=== PATIENT | female | born 1955 | race Caucasian/White ===

== ENCOUNTER → 2024-04-18 10:16 | Outpatient (REF) | payer OTHER, SELFPAY ==
[2024-04-18 12:38] LABS: Blood Urea Nitrogen 16 mg/dl (7-17); Calcium 9.9 mg/dl (8.4-10.2); Carbon Dioxide 28 mmol/L (22-30); Chloride 102 mmol/L (98-107); Glucose 89 mg/dl (70-99); Potassium 4.4 mmol/L (3.5-5.1); Sodium 139 mmol/L (135-145); eGFR > 60.00
== END ==
LOC: REG 10:16
PROVIDERS: ATTENDING PHYSICIAN Surgery Vascular Surgery; FAMILY PHYSICIAN Family Medicine
DX: I65.21 Occlusion and stenosis of right carotid artery (principal)
CPT/HCPCS: 36415; 80048

== ENCOUNTER → 2024-04-25 11:42 | Outpatient (REF) | payer OTHER, SELFPAY | LOC: RAD 11:42 | PROVIDERS: ATTENDING PHYSICIAN Surgery Vascular Surgery; FAMILY PHYSICIAN Family Medicine | DX: I65.21 Occlusion and stenosis of right carotid artery (principal) | CPT/HCPCS: 70496; 70498; Q9967 ==

== ENCOUNTER → 2024-06-08 13:50 | Outpatient (REF) | payer OTHER, SELFPAY | LOC: WDC 13:50 | PROVIDERS: ATTENDING PHYSICIAN Family Medicine | DX: Z12.31 Encounter for screening mammogram for malignant neoplasm of breast (principal) | CPT/HCPCS: 77063; 77067 ==

== ENCOUNTER → 2024-06-30 11:01 | Outpatient (REF) | payer MEDICARE, OTHER, SELFPAY | LOC: DHCBC/DCA 11:01 | PROVIDERS: ATTENDING PHYSICIAN Internal Medicine Cardiovascular Disease; FAMILY PHYSICIAN Family Medicine | DX: I65.23 Occlusion and stenosis of bilateral carotid arteries (principal); I10 Essential (primary) hypertension; E78.00 Pure hypercholesterolemia, unspecified | CPT/HCPCS: 78452; 93017; A9500; J2785 ==

== ENCOUNTER 2024-07-08 06:17 | Inpatient (IN) | payer MEDICARE, OTHER, SELFPAY ==
[2024-06-29 09:33] VITALS: BMI 27.0
[2024-06-29 10:04] LABS: % Basophils 0.8 % (0-2); % Eosinophils 1.5 % (0-6); % Immature Granulocytes 0.3 % (0-0.5); % Lymphocytes 24.9 % (20.5-51.1); % Monocytes 8.3 % (1.7-9.3); % Neutrophils 64.2 % (42.2-75.2); Absolute Basophils 0.1 10^3/uL (0-0.2); Absolute Eosinophils 0.1 10^3/uL (0-0.7); Absolute Lymphocytes 2.3 10^3/uL (1.2-3.4); Absolute Monocytes 0.8 10^3/uL (0.1-0.6); Absolute Neutrophils 5.8 10^3/uL (1.4-6.5); Hematocrit 42.8 % (37.0-47.0); Hemoglobin 14.7 g/dL (12.0-16.0); Mean Corp Hgb Conc. 34.3 g/dL (33.0-37.0); Mean Corpuscular Hgb 32.2 pg (27.0-31.0); Mean Corpuscular Volume 93.9 fL (81.0-99.0); Mean Platelet Volume 11.4 fL (7.4-10.4); Nucleated Red Blood Cells % 0 %; Platelet Count 238 10^3/uL (130-400); Red Blood Cell Count 4.56 10^6/uL (4.20-5.40); Red Cell Dist. Width 13.5 % (11.5-14.5)
[2024-06-29 10:13] LABS: INR 0.98
[2024-06-29 10:14] LABS: APTT 33.7 Sec (23.4-35.0)
[2024-06-29 11:54] LABS: Blood Urea Nitrogen 14 mg/dl (7-17); Calcium 9.8 mg/dl (8.4-10.2); Carbon Dioxide 31 mmol/L (22-30); Chloride 103 mmol/L (98-107); Estimated Creatinine Clearance 72 ml/min; Glucose 88 mg/dl (70-99); Potassium 4.1 mmol/L (3.5-5.1); Sodium 136 mmol/L (135-145); eGFR > 60.00
[2024-07-08] VITALS (15 sets, daily range): BP systolic 95–155; BP diastolic 37–70; BMI 26.8
[2024-07-08] MEDS: NSS 500 IV (07:05)
[2024-07-08] MEDS: PERIDEX 0.12% ORAL RINSE 15 ML PO (07:09)
[2024-07-08] MEDS: BACTROBAN NASAL 1 GRAM NASAL (07:09)
--- NOTE | 2024-07-08 07:27 | W.SUR.PREOP ---
Pre-Operative Surgical Note
-
I have examined this patient prior to the performance of the scheduled procedure.
The patient's condition is unchanged from the time of the current History and
Physical and the patient is able to undergo the scheduled procedure.
[2024-07-08 08:48] LABS: ACT-LR - POC 340 Seconds (116-155)
[2024-07-08 09:21] LABS: ACT-LR - POC 287 Seconds (116-155)
--- NOTE | 2024-07-08 10:13 | W.SUR.POST ---
Surgical Immediate Post Op
Note
Pre Op Diagnosis: RIGHT carotid stenosis
Post Op Diagnosis: RIGHT carotid stenosis
Procedure Performed: RIGHT caortid endarterectomy
Primary Surgeon: Miguelito Panchal MD
Secondary Surgeons: Johan Bocanegra MD, PhD
Anesthesia: Per Anesthesia
Estimated Blood Loss: 20 cc
Fluids: Per Anesthesia
Drains/Shunts: None
Specimens/Cultures: None
Doppler/Duplex/Angio (Y/N): None
Complications: None
Operative Findings: Uncomplicated RIGHT caortid endarterectomy, neuro intact post-op.
[2024-07-08] MEDS: ZOFRAN 4 MG IV (10:24)
[2024-07-08] MEDS: DILAUDID 0.25 MG IV ×2 (10:25→10:40)
[2024-07-08 10:30] LABS: Hematocrit 34.7 % (37.0-47.0); Hemoglobin 12.1 g/dL (12.0-16.0); Mean Corp Hgb Conc. 34.9 g/dL (33.0-37.0); Mean Corpuscular Hgb 31.8 pg (27.0-31.0); Mean Corpuscular Volume 91.3 fL (81.0-99.0); Mean Platelet Volume 10.6 fL (7.4-10.4); Platelet Count 203 10^3/uL (130-400); Red Cell Dist. Width 13.6 % (11.5-14.5); White Blood Cell Count 11.8 10^3/uL (4.8-10.8)
[2024-07-08] MEDS: COMPAZINE 5 MG IV (10:39)
--- NOTE | 2024-07-08 10:39 | OR.RPT ---
Operative Report
Operative Report
Date of Operation: 07/08/2024
Pre Op Diagnosis: High-grade calcified stenosis of the right internal carotid artery, asymptomatic
Post Op Diagnosis: High-grade calcified stenosis of the right internal carotid artery, asymptomatic
Procedure: RIGHT carotid endarterectomy with patch angioplasty using bovine pericardium
Surgeon: Miguelito Panchal III, MD
[place] Shearer: Johan Bocanegra MD PhD PGY-6
Anesthesia: General
Complications: None
History and Indications for Procedure: 69-year-old female with asymptomatic high-grade stenosis involving the right internal carotid artery
Procedure in Detail: Morena Murillo was correctly identified and placed supine on the operating table. After adequate induction of anesthesia the right neck was positioned, prepped and draped in the usual sterile fashion. Preoperative antibiotics were
administered. A timeout procedure was performed with the nursing and anesthesia staff confirming the patients identity as well as the nature and laterality of the procedure.
The carotid bifurcation was marked with ultrasound at the beginning of the case. The incision was planned accordingly. An incision was made along the anterior border of the right sternocleidomastoid muscle. Electrocautery was used to divide the
subcutaneous tissue and platysma. The carotid sheath was entered with sharp dissection. The internal jugular vein was retracted laterally. The vagus nerve was identified and protected throughout the case. The common carotid artery was identified at
the base of this incision and carefully encircled with a vessel loop. The patient was systemically heparinized. The dissection was continued distally towards the carotid bifurcation. The facial vein was skeletonized, ligated and divided between ties
and clips. The proximal external carotid artery was encircled with a vessel loop. The distal internal carotid artery was encircled with a vessel loop at a soft spot on the artery beyond the plaque. The hypoglossal nerve was identified and protected.
The internal vessel loop was secured followed by the common and external. An arteriotomy was made on the distal common carotid artery with an 11-blade. This was extended proximally and distally with Delacruz scissors. The arteriotomy was extended
distally through the plaque to an area of normal appearing internal carotid artery. The distal vessel loop was replaced with a short tip hockey-stick type vascular clamp. An endarterectomy was performed with a Holmes elevator in the standard
fashion. The proximal extent of the plaque was transected with scissors. The distal end of the plaque in the internal carotid artery feathered very nicely with no distal intimal flap identified. The plaque extending into the external carotid artery
was everted. Once the plaque was fully removed the endarterectomy plane was irrigated with heparinized saline and any loose fronds of tissue were removed. A pre-cut piece of bovine pericardium was sewn in place using a running 6-0 Prolene suture.
Prior to the completion of the patch the common carotid was allowed to forward bleed and the external was allowed to back bleed. The area under the patch was irrigated with heparinized saline to remove any potential thrombus or debris. The
anastomosis was completed.
The external vessel loop was released first, followed by the common and then the internal. There was an excellent pulse in the distal internal carotid artery. An excellent quality Doppler signal in the distal internal carotid artery was also
confirmed. The patch suture line was closely inspected for hemostasis and was achieved. Protamine was administered. Hemostasis was achieved in the wound bed. The wound was irrigated with saline solution.
The wound was then closed in layers. Sterile dressings were applied. The patient awoke from anesthesia with no immediate neuro deficits and was taken to the PACU in stable condition.
Attestation: I was present and responsible for the entire procedure
Signed:
Miguelito Panchal III, MD
[facility] V[facility] Surgery
[phone] (cell)
[2024-07-08 10:42] LABS: INR 1.09; PT 13.9 Sec (11.4-14.6)
[2024-07-08 10:43] LABS: APTT 34.8 Sec (23.4-35.0)
[2024-07-08] MEDS: NEO-SYNEPHRINE 250 IV (11:00)
[2024-07-08 11:08] LABS: Blood Urea Nitrogen 13 mg/dl (7-17); Calcium 8.7 mg/dl (8.4-10.2); Carbon Dioxide 25 mmol/L (22-30); Chloride 107 mmol/L (98-107); Estimated Creatinine Clearance 84 ml/min; Glucose 124 mg/dl (70-99); Potassium 4.2 mmol/L (3.5-5.1); Sodium 140 mmol/L (135-145); eGFR > 60.00
[2024-07-08] MEDS: NSS 1000 IV ×2 (11:47→21:55)
--- NOTE | 2024-07-08 12:47 | CON.INTV ---
Consultation
Consultation Request
Date/Time Consultation Requested: 07/08/2024
Date/Time Consultation Performed: 07/08/2024
Requesting Provider: Dr. Panchal
Performing Provider: Dr. Brandon Shukla
Reason for Consultation: Postoperative ICU care status post carotid endarterectomy
Medical History
-
History of Present Illness:
69-year-old woman with past medical history significant for hypertension, arthritis and history of bilateral carotid endarterectomy. 90% on the right and less than 50% on the left. History of tobacco abuse. Electively admitted for
revascularization.
She underwent right carotic endarterectomy on 07/08/[address] Panchal without complications.
Currently in the critical care unit. She is stable.
Neurologically has no complaints per
Pain is controlled.
Denies shortness of breath
Past Medical History
Past Medical History: Other (As in HPI)
Social History
Tobacco: Smoker (Half a pack per day)
Alcohol: None
Drug: None
Family History
Family History: Reviewed & Not Pertinent
Allergies / Home Medications
Allergies
Allergy/AdvReac Type Severity Reaction Status Date / Time
No Known Allergies Allergy Verified 07/08/24 06:39
Home Medications
�Medication �Instructions �Recorded �Confirmed �Last Taken �Type
amlodipine 2.5 mg tablet 2.5 mg PO DAILY 06/24/24 07/08/24 07/08/24 04:30 History
amlodipine 5 mg tablet 5 mg PO HS 06/24/24 07/08/24 07/07/24 20:30 History
aspirin 81 mg tablet,delayed 81 mg PO 06/24/24 07/08/24 07/07/24 20:30 History
release
carbidopa ER 25 mg-levodopa 100 mg 1 tab PO HS 06/24/24 07/08/24 07/07/24 20:30 History
tablet,extended release
ibuprofen 200 mg tablet 400 mg PO DAILY 06/24/24 07/08/2424 04:30 History
metoprolol succinate 25 mg 25 mg PO HS 06/24/24 07/08/24 07/07/24 20:30 History
tablet,extended release 24 hr
metoprolol succinate 25 mg 37.5 mg PO DAILY 06/24/24 07/08/24 07/08/24 04:30 History
tablet,extended release 24 hr
atorvastatin 40 mg tablet 40 mg PO HS 07/08/24 07/08/24 07/07/24 20:30 History
Review of Systems
-
History Source: Patient
All other systems: Negative unless noted
Vitals / Labs / Diagnostic Testing
Vital Signs
Temp Pulse Resp BP Pulse Ox
97.9 F 57 12 105/37 96
07/08/24 11:54 07/08/24 11:45 07/08/24 11:45 07/08/24 11:45 07/08/24 11:45
Lab Data
07/08/24 10:21
07/08/24 10:21
Laboratory Results
07/08/24
10:21
PT 13.9
INR 1.09
APTT 34.8
Diagnostic Testing:
Physical Exam
-
HEENT: Normocephalic and Other (Incision is intact. No hematoma. No stridor on exam.)
Cardiovascular: S1/S2
Respiratory: Clear and Non-Labored Respirations
GI: Soft and Non Distended
Neurology: Awake
Skin: Warm
General: Comfortable
Assessment
-
Status post right carotid endarterectomy 07/08/[address] Panchal
Conditions present prior admission:
Hypertension
Hyperlipidemia
Tobacco abuse half a pack per day
Prior hysterectomy
Prior microdiscectomy
-
Assessment and plan:
Postoperative surgical intensive care unit monitoring
Supplemental oxygen as needed
Incentive spirometry
Aspiration precautions
Nebulizers if needed-currently not bronchospastic
Chest x-ray 06/29/2024 reviewed-no acute abnormalities.
Analgesia with oral narcotics. Monitor respiratory status closely
Neuro and vascular checks per protocol
Vascular surgery following-correspondence and operative notes reviewed
Monitor blood pressure
Restart outpatient medication
Allow for mild permissive hypertension
Cardene drip if needed
Follow hemoglobin
Follow blood sugars
Insulin supplementation as needed
Gentle IV fluids
Advance diet as able
DVT prophylaxis
Early nutrition
Early mobilization
--- NOTE | 2024-07-08 15:50 | PTCARENOTE ---
Pt has been drowsy since arriving to unit from PACU, but is easily arousable. Pt is oriented/pleasant/conversive. Neuro intact. Poor appetite but tolerating oral fluids well. Reginaldo-synephrine infusion off. Pt is Sinus Tez w/ rate of 57.
[2024-07-08] MEDS: HEPARIN 5000 UNITS SC (17:23)
[2024-07-08] MEDS: TYLENOL 650 MG PO (18:22)
--- NOTE | 2024-07-08 20:15 | PTCARENOTE ---
Pt Aox3, VSS, NSR on monitor, denies any overt pain, right neck is tender but refusing any medication at this time. neuro intact. Q1 nuero checks. Incision CDI, Approximated with surgical glue closure. [place] right radial. NS @80ml/hr. 2L o2 for sat
>[address], patient able to shift self in bed.
[2024-07-08] MEDS: NORVASC 5 MG PO (21:53)
[2024-07-08] MEDS: LIPITOR 40 MG PO (21:54)
[2024-07-08] MEDS: SINEMET CR 25-100 (EXTENDED RELEASE) 1 TABLET PO (21:54)
[2024-07-08] MEDS: ASPIR LOW (ENTERIC COATED) 81 MG PO (21:54)
[2024-07-08] MEDS: TOPROL XL 25 MG PO (21:54)
[2024-07-09] VITALS: BP 135/52
[2024-07-09] MEDS: HEPARIN 5000 UNITS SC ×2 (00:06→08:56)
[2024-07-09] MEDS: TYLENOL 650 MG PO (03:01)
[2024-07-09 04:00] VITALS: BP 145/63
[2024-07-09 04:30] LABS: Hematocrit 34.5 % (37.0-47.0); Mean Corp Hgb Conc. 34.8 g/dL (33.0-37.0); Mean Corpuscular Hgb 32.8 pg (27.0-31.0); Mean Corpuscular Volume 94.3 fL (81.0-99.0); Mean Platelet Volume 11.6 fL (7.4-10.4); Platelet Count 196 10^3/uL (130-400); Red Blood Cell Count 3.66 10^6/uL (4.20-5.40); Red Cell Dist. Width 13.5 % (11.5-14.5); White Blood Cell Count 19.6 10^3/uL (4.8-10.8)
[2024-07-09 04:39] LABS: INR 1.08; PT 13.8 Sec (11.4-14.6)
[2024-07-09 04:40] LABS: APTT 31.9 Sec (23.4-35.0)
[2024-07-09 04:52] LABS: Blood Urea Nitrogen 7 mg/dl (7-17); Carbon Dioxide 24 mmol/L (22-30); Chloride 107 mmol/L (98-107); Estimated Creatinine Clearance 84 ml/min; Glucose 111 mg/dl (70-99); Potassium 4.1 mmol/L (3.5-5.1); Sodium 138 mmol/L (135-145); eGFR > 60.00
[2024-07-09 06:00] VITALS: BMI 27.0
[2024-07-09 08:00] VITALS: BP 170/104
[2024-07-09] MEDS: TOPROL XL 37.5 MG PO (08:55)
[2024-07-09] MEDS: NORVASC 2.5 MG PO (08:56)
--- NOTE | 2024-07-09 08:57 | W.PN.VS ---
Today's Communication / Plan
-
Pathway
Assessment/Plan
-
POD1 R CEA
DC evelia
OOB
Diet
Possible home today
Subjective Data
-
Date of Service: July 09, 2024
Looks great
NO complaints
Objective Data
-
Vital Signs
Temp Pulse Resp BP Pulse Ox
98.7 F 64 13 145/63 92
07/09/24 07:42 07/09/24 07:00 07/09/24 07:00 07/09/24 04:00 07/09/24 07:00
Intake and Output
07/08/24 07/09/24 07/10/24
06:59 06:59 06:59
Intake Total 960 / 960
Output Total 1000 / 1000
Balance 960 / 960 -1000 / -1000
Intake:
Oral fluids 960 / 960
Output:
Urine, Voided 1000 / 1000
Other:
Number of approximated MODERATE 1
amounts of urine
Lab Results
07/09/24 04:03
07/09/24 04:03
Calcium 9.0 mg/dl (8.4-10.2) 07/09/24 04:03
Physical Exam
-
NAD
Alert/oriented
Grossly non focal neuro
Neck incision clean/dry
--- NOTE | 2024-07-09 09:49 | W.PN.INTV ---
Today's Communication / Plan
Recommendations
Continue postoperative care
Discontinue IV fluids
Continue outpatient medication
Antiplatelet
Increase activity as able
Advance diet
Discharge planning
Sign off
Assessment
-
Status post right carotid endarterectomy 07/08/[address] Panchal
Conditions present prior admission:
Hypertension
Hyperlipidemia
Tobacco abuse half a pack per day
Prior hysterectomy
Prior microdiscectomy
-
Assessment and plan:
Postoperative day 1
Neurologically intact
Hemodynamically stable
Pain is controlled
Analgesia with oral narcotics. Monitor respiratory status closely
Neuro and vascular checks per protocol
Vascular surgery following-correspondence and operative notes reviewed
Possible discharge later today
Blood pressure is controlled.
Continue outpatient medication
Arterial line discontinued
IV fluids discontinued
Follow blood sugars
Insulin supplementation as needed
Leukocytosis reactive. Afebrile.
DVT prophylaxis
Tolerating diet
-
Hopefully discharge later today. Critical care team will sign off
Subjective Dataa
Subjective Data
Date of Service:
Date of Service: July 09, 2024
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
Subjective:
No complaints overnight
Pain is controlled
Denies headache dizziness or blurry vision
Review of Systems
Cardiopulmonary: Dyspnea (n)
Neuro: Headache (n), Dizziness (n) and Weakness (n)
Objective Data
Data Reviewed
Vital Signs / I&O / Oxygen:
Vital Signs
Temp Pulse Resp BP Pulse Ox
98.7 F 73 17 170/104 92
07/09/24 07:42 07/09/24 09:00 07/09/24 09:00 07/09/24 08:00 07/09/24 09:00
Intake and Output
07/08/24 07/09/24 07/10/24
06:59 06:59 06:59
Intake Total 960 / 960
Output Total 1000 / 1000
Balance 960 / 960 -1000 / -1000
SaO2 92
Nasal Cannula flow liters per 2
minute
Physical Exam
General: Comfortable
HEENT: Normocephalic and Other (Cervical incision intact. No stridor on exam. No hematoma)
Cardiovascular: S1-S2
Respiratory: Non-Labored Respirations
GI: Soft and Non Distended
Neurology: Awake, Alert, Oriented, AO x 3 and No Motor Deficits
Labs/Micro/Reports
Lab Data
07/09/24 04:03
07/09/24 04:03
Laboratory Results
07/08/24 07/09/24
10:21 04:03
PT 13.9 13.8
INR 1.09 1.08
APTT 34.8 31.9
--- NOTE | 2024-07-09 10:30 | PTCARENOTE ---
Rec'd pt at 0700. Pt AAOx3, follows commands, WREN. Monitor SR. Lungs CTA. Right neck with mild swelling, incision approximated with surgical adhesive intact. +BS, abd soft/nt. Right radial a-line dc'd as per orders. Pt OOB to bathroom for am care
then to recliner chair at this time.
[2024-07-09] MEDS: NSS IV (12:24)
--- NOTE | 2024-07-09 12:28 | CM ---
CM following re: discharge planning.
Reviewed pt's chart, met with pt.
Pt is a 69 year old female, admitted with primary dx of POD1 R CEA
Pt reports she lives alone in a 2SH, 1 step to enter, has stair glide to get to 2nd floor, has 3 supportive children. Pt described herself as independent in all areas [place], drives.
Discharge order noted. Pt is aware, expressed her agreement with discharge and pt stated her daughter will transport her home. IMM reviewed, placed on chart, pt has a copy.
D/C plan: home no needs. Daughter to transport.
[2024-07-09] MEDS: PREVNAR 20 0.5 ML IM (13:31)
[2024-07-09 13:44] VITALS: BP 141/58
--- NOTE | 2024-07-09 13:59 | PTCARENOTE ---
Pt ambulating in room. Discharge instructions reviewed with pt. Pneumonia vaccine given. Pre-discharge vitals obtained. Peripheral IVs and tele monitor removed. Pt discharged to home at 1400.
--- NOTE | 2024-07-11 09:29 | W.PN.UPDATE ---
Update Note
Progress Note Update
Contacted by the emergency service line this AM regarding Morena Instructor Warper
Called patient at [phone]
Right CEA on 07/08/24
Uneventful post op course and d/c'd home on 07/09
Was doing fine Thursday and Thursday.
.
Complaining of diffuse neck pain and severe headache at the base of her head
No incision issues. No swelling.
Pain is not at the right neck incision
No other complaints besides severe headache
I instructed her to come to the ED for evaluation, BP check and non-contrast head CT given her headache post CEA (? cerebral hyperperfusion)
== END 2024-07-09 14:22 | disposition home or self-care (01) | DRG 39 ==
LOC: ICU 06:17
PROVIDERS: Nurse Practitioner Acute Care; ADMITTING PHYSICIAN Surgery Vascular Surgery; FAMILY PHYSICIAN Family Medicine
PROC: 03UH0KZ Supplement Right Common Carotid Artery with Nonautologous Tissue Substitute, Open Approach (ICD-10-PCS; 2024-07-08)
PROC: 03CH0ZZ Extirpation of Matter from Right Common Carotid Artery, Open Approach (ICD-10-PCS; 2024-07-08)
DX: I65.21 Occlusion and stenosis of right carotid artery (principal); F17.210 Nicotine dependence, cigarettes, uncomplicated; I10 Essential (primary) hypertension; E78.5 Hyperlipidemia, unspecified
CPT/HCPCS: 35301; 36415; 71046; 80048; 85025; 85027; 85610; 85730; 87070; 90677; 95938; 95941; 95955; G0009

== ENCOUNTER 2024-07-11 10:04 | Emergency (ER) | payer MEDICARE, OTHER, SELFPAY ==
[2024-07-11 10:15] VITALS: BP 160/75
--- NOTE | 2024-07-11 10:43 | ED.GENMED ---
History of Present Illness
General
Chief Complaint: Headache
Time Seen by Provider: 07/11/24 10:43
History of Present Illness
History of Present Illness:
HPI: Patient presents with headache. 3 days ago, the patient had right-sided carotid endarterectomy with Dr. Panchal. 2 days ago, she started having the headache is located on the left side at the base of the skull. It radiates towards the right.
Most of the pain is in the base of the skull/upper neck. She has no strokelike symptoms.
EXAM:
GENERAL: Well appearing in mild distress
HEENT: Moist oral mucosa
CARDIOVASCULAR: No murmurs, normal heart rate, regular rhythm, No chest wall tenderness
PULMONARY: No respiratory distress, breath sounds are clear and equal
ABDOMEN: Soft with no peritoneal signs, no tenderness
NEUROLOGIC: Excellent strength all extremities, no coordination deficits
PSYCHIATRIC: Appropriate mental status, normal insight and judgement
EXTREMITIES: Nontender, no edema, moves all extremities equally
SKIN: No rash, no lesions
TIME OF INITIAL ENCOUNTER: 11:30 AM
NUMBER AND COMPLEXITY OF PROBLEMS ADDRESSED AT THE ENCOUNTER
� Chronic conditions affecting care: Vascular disease, recent CEA, high blood pressure, hyperlipidemia
� Acute Exacerbation and/or Progression of Chronic Illness: This is an acute problem
� Differential Diagnosis includes: Tension headache, intracranial hemorrhage, hypertensive urgency
AMOUNT AND/OR COMPLEXITY OF DATA TO BE REVIEWED AND ANALYZED
� I performed an independent evaluation of and my interpretation is:
EKG:
CT: CT imaging shows no acute abnormality
X-rays:
Laboratory Studies: Labs not indicated
Other:
� Review of other/old records: The patient has CTA 04/25/2024 which showed severe right ICA stenosis
� Clinical information was obtained by an independent historian: I spoke to daughter at bedside
� Prescriptions/Medications Considered but not given:
� Further testing considered but not performed:
RISK OF COMPLICATIONS AND/OR MORBIDITY OR MORTALITY OF PATIENT MANAGEMENT
� Social determinants of health affecting care: Lives at home
� Discussion with other providers: I discussed case with Dr. Panchal
� Escalation of care including admission/observation vs risk of discharge considered: The patient was given Toradol, Valium, and Zofran. She did temporarily desat after Valium but overall is wide-awake at time of discharge.
Overall she appears comfortable at time of discharge.
Past History
Past History
ED Past Medical History: HTN
ED Past Surgical History: Gynecological
Social History
Tobacco: Smoker
Employment: Employed
Family History
Family History: Negative Early CAD
Phy Exam
Physical Exam
Physical Exam:
See HPI
Course
Orders/Labs/Results
Orders:
Orders
07/11/24 10:18
CT Head W/o Iv Contrast Urgent
Comment:
Reason For Exam: headache
07/11/24 11:46
Ketorolac [Toradol] 15 mg IV NOW STA
Ondansetron Injectable [Zofran] 4 mg IV NOW STA
diazePAM [Valium Injection] 5 mg IV NOW STA
Vital Signs
Initial and Last Documented VS:
Initial Vital Signs
Temp Pulse Resp BP Pulse Ox
97.9 F 67 20 160/75 97
07/11/24 10:15 07/11/24 10:15 07/11/24 10:15 07/11/24 10:15 07/11/24 10:15
Last Documented Vital Signs
Temp Pulse Resp BP Pulse Ox
97.9 F 58 18 148/63 93
07/11/24 10:15 07/11/24 13:00 07/11/24 13:00 07/11/24 13:00 07/11/24 13:00
*Critical Care Note
Total Time (30-74mins, 75-104mins- exclusive of procedures): Not Applicable
ED Attending Note
-
Portions of this chart may have been created with voice recognition software.� Occasional wrong word or��sound alike� substitutions may have occurred due to the inherent limitations of voice recognition software.
Discharge Plan
Departure
Patient Disposition: Home (Routine Discharge)
Date of Disposition: 07/11/24
Time of Disposition: 12:57
Patient with high blood pressure during this ER visit?: Yes
Discharge Problem:
Headache
Instructions: Headache, Adult ED
Prescriptions:
New
diazepam [Valium] 2 mg tablet
2 - 4 mg PO HS PRN (Reason: muscle spasm) Qty: 8 0RF
No Action
carbidopa-levodopa 25-100 mg Tablet Extended Release
1 tab PO HS
amlodipine 2.5 mg Tablet
2.5 mg PO DAILY
amlodipine 5 mg Tablet
5 mg PO HS
aspirin 81 mg Tablet,Delayed Release (Dr/Ec)
81 mg PO HS
ibuprofen 200 mg Tablet
400 mg PO DAILY
metoprolol succinate 25 mg Tablet Extended Release 24 Hr
25 mg PO HS
metoprolol succinate 25 mg Tablet Extended Release 24 Hr
37.5 mg PO DAILY
atorvastatin 40 mg Tablet
40 mg PO HS
Referrals:
Froylan Ricks MD [Family Provider] -
Activity Restrictions/Additional Instructions:
I sent a prescription for Valium to your pharmacy. You can continue NSAIDs. I spoke to Dr. Panchal. CAT scan of the brain shows no acute abnormality. Return here if worse. Follow-up with your doctor and with Dr. Panchal.
Interventions
Interventions:
*Risk Screen - Suicide Last Done: 07/11/24 10:51
*General Assessment Last Done: 07/11/24 10:51
*Neglect/Abuse Screening Last Done: 07/11/24 10:51
ED- Fall Risk Assessment Last Done: 07/11/24 10:51
*ED COVID-19 Vaccine History Last Done: 07/11/24 13:04
*Nursing Disposition Last Done: 07/11/24 13:04
ED- Neurological Assessment Last Done: 07/11/24 10:51
Discharge Date and Time
Discharge Date/Time: 07/11/24 13:29
Print Language: TAJIK
[2024-07-11 10:50] VITALS: BMI 27.9
[2024-07-11 10:51] VITALS: BP 163/66
[2024-07-11 11:00] VITALS: BP 160/72
[2024-07-11] MEDS: ZOFRAN 4 MG IV (11:53)
[2024-07-11] MEDS: TORADOL 15 MG IV (11:54)
[2024-07-11] MEDS: VALIUM INJECTION 5 MG IV (11:55)
[2024-07-11 12:00] VITALS: BP 168/82
[2024-07-11 13:00] VITALS: BP 148/63
--- NOTE | 2024-07-11 13:11 | EDRN ---
1200- Pt Os sats dropped after receiving IV valium, non productive cough placed on 2L O2, responsive to verbal cues. On cardiac cath lab technologist, felt better after drinking some water.
== END 2024-07-11 13:29 | disposition home or self-care (01) ==
LOC: EMR 10:04
PROVIDERS: EMERGENCY PHYSICIAN Emergency Medicine; FAMILY PHYSICIAN Family Medicine
DX: R51.9 Headache, unspecified (principal); M54.2 Cervicalgia; I10 Essential (primary) hypertension; E78.5 Hyperlipidemia, unspecified; I99.9 Unspecified disorder of circulatory system; F17.200 Nicotine dependence, unspecified, uncomplicated; Z98.890 Other specified postprocedural states; Z79.82 Long term (current) use of aspirin
CPT/HCPCS: 99284; 96374; 96375 ×2; 70450

== ENCOUNTER → 2024-08-03 08:24 | Outpatient (REF) | payer MEDICARE, OTHER, SELFPAY ==
[2024-08-03 10:30] LABS: ALT (SGPT) < 10 U/L (0-35); AST (SGOT) 23 U/L (14-36); Albumin 4.2 g/dl (3.5-5.0); Alkaline Phosphatase 95 U/L (38-126); Blood Urea Nitrogen 14 mg/dl (7-17); Calcium 9.8 mg/dl (8.4-10.2); Carbon Dioxide 28 mmol/L (22-30); Chloride 102 mmol/L (98-107); Glucose 90 mg/dl (70-99); HDL Cholesterol 66 mg/dl; LDL Cholesterol, Calculated 51 mg/dl; Potassium 4.3 mmol/L (3.5-5.1); Sodium 140 mmol/L (135-145); Total Bilirubin 0.8 mg/dl (0.2-1.3); Total Cholesterol 128 mg/dl (50-199); Total Protein 6.7 g/dl (6.3-8.2); Triglyceride 57 mg/dl (10-149); Very Low Density Lipoprotein 11 mg/dl (0-30); eGFR > 60.00
== END ==
LOC: REG 08:24
PROVIDERS: ATTENDING PHYSICIAN Internal Medicine Cardiovascular Disease; FAMILY PHYSICIAN Family Medicine
DX: I65.23 Occlusion and stenosis of bilateral carotid arteries (principal); E78.00 Pure hypercholesterolemia, unspecified
CPT/HCPCS: 36415; 80053; 80061

== ENCOUNTER → 2024-08-17 08:45 | Outpatient (REF) | payer MEDICARE, OTHER, SELFPAY | LOC: RAD 08:45 | PROVIDERS: ATTENDING PHYSICIAN Physician Assistant; FAMILY PHYSICIAN Family Medicine | DX: I65.21 Occlusion and stenosis of right carotid artery (principal); Z13.6 Encounter for screening for cardiovascular disorders | CPT/HCPCS: 76770; 93880 ==

== ENCOUNTER → 2024-11-07 14:20 | Outpatient (REF) | payer MEDICARE, OTHER, SELFPAY ==
[2024-11-07 15:13] LABS: Blood Urea Nitrogen 18 mg/dl (7-17); Calcium 9.7 mg/dl (8.4-10.2); Carbon Dioxide 30 mmol/L (22-30); Chloride 97 mmol/L (98-107); Glucose 132 mg/dl (70-99); Sodium 135 mmol/L (135-145); eGFR > 60.00
== END ==
LOC: REG 14:20
PROVIDERS: ATTENDING PHYSICIAN Internal Medicine Cardiovascular Disease
DX: I10 Essential (primary) hypertension (principal)
CPT/HCPCS: 36415; 80048

== ENCOUNTER → 2025-02-23 10:28 | Outpatient (REF) | payer MEDICARE, OTHER, SELFPAY | LOC: RAD 10:28 | PROVIDERS: ATTENDING PHYSICIAN Surgery Vascular Surgery | DX: I65.21 Occlusion and stenosis of right carotid artery (principal) | CPT/HCPCS: 93880 ==

== ENCOUNTER → 2025-04-26 13:52 | Outpatient (REF) | payer MEDICARE, OTHER, SELFPAY | LOC: RCS 13:52 | PROVIDERS: ATTENDING PHYSICIAN Internal Medicine Cardiovascular Disease; FAMILY PHYSICIAN Family Medicine | DX: I65.23 Occlusion and stenosis of bilateral carotid arteries (principal) | CPT/HCPCS: 93306 ==

== ENCOUNTER → 2025-05-24 14:50 | Outpatient (REF) | payer MEDICARE, OTHER, SELFPAY | LOC: HWRAD 14:50 | PROVIDERS: ATTENDING PHYSICIAN Physician Assistant; FAMILY PHYSICIAN Family Medicine | DX: I65.21 Occlusion and stenosis of right carotid artery (principal) | CPT/HCPCS: 93880 ==

== ENCOUNTER → 2025-11-07 08:22 | Outpatient (REF) | payer MEDICARE, OTHER, SELFPAY ==
[2025-11-07 10:04] LABS: Blood Urea Nitrogen 14 mg/dl (7-17); Calcium 9.5 mg/dl (8.4-10.2); Carbon Dioxide 30 mmol/L (22-30); Chloride 102 mmol/L (98-107); Glucose 108 mg/dl (70-99); Potassium 4.6 mmol/L (3.5-5.1); Sodium 136 mmol/L (135-145); eGFR > 60.00
== END ==
LOC: REG 08:22
PROVIDERS: ATTENDING PHYSICIAN Internal Medicine Cardiovascular Disease; FAMILY PHYSICIAN Physician Assistant
DX: I10 Essential (primary) hypertension (principal)
CPT/HCPCS: 36415; 80048